=== PATIENT | male | born 1965 | race Caucasian/White ===

== ENCOUNTER 2021-09-13 23:17 | Emergency (ER) | payer MEDICAID, SELFPAY ==
[2021-09-14] VITALS: BP 160/74; PULSE 77; RESP 18; TEMP 36.7; O2SAT 97; BMI 21.7
--- NOTE | 2021-09-14 00:34 | W.ED.PSYCHS ---
HPI - Psych General: Chief Complaint: Psychiatric Symptoms Stated Complaint: MHE Time Seen by Provider: 09/14/21 00:00 History of Present Illness: HPI Narrative: Patient is a 55-year-old male who comes here via EMS for mental health evaluation. Patient was just placed in [facility] today after he had been staying in [facility]. The staff said that patient had been acting a little aggressive towards staff and other patients since he came to the prison today and they sent him here to the ED for mental health evaluation. Patient is alert oriented and normal state of mind and answers all questions accordingly. Denies any HI, SI, auditory or visual hallucinations. He denies any current physical symptoms. pt's POA is the state. EMS also stated that patient denied any SI or HI during transport. Associated symptoms: Deny auditory hallucinations, visual hallucinations, homicidal ideation or suicidal ideation Review of Systems Const: Denies: fever(s), chills or fatigue Eyes: Denies: change in vision or eye discomfort ENMT: Denies: throat pain, odynophagia, nasal discharge or nasal congestion Card: Denies: chest pain, palpitations, edema, swelling of feet/ankles, dyspnea on exertion or orthopnea Resp: Denies: dyspnea, productive cough or non-productive cough GI: Denies: abdominal pain, nausea, vomiting, diarrhea, constipation or hematochezia : Denies: flank pain, difficulty urinating, dysuria or hematuria Musc: Denies: neck pain, back pain or extremity swelling Skin/Breast: Denies: rash or new lesions Neuro: Denies: headache(s), numbness in extremities or weakness in extremities Psych: Denies: visual hallucinations, auditory hallucinations, suicidal ideation or homicidal ideation Physical Exam Const: COMMON NORMALS: no acute distress, patient oriented x3 and alert GENERAL APPEARANCE: cooperative and comfortable HENMT: COMMON NORMALS: normocephalic HEAD & SCALP: normocephalic MOUTH: Normal oral and palatal mucosa present THROAT: posterior oropharynx normal and uvula midline Neck/C-Spine: COMMON NORMALS: supple GENERAL: Yes normal visual inspection Resp: COMMON NORMALS: normal respiratory effort, No retractions, No use of accessory muscles and clear to auscultation bilaterally AUSCULTATION: clear to auscultation bilaterally Cardio: COMMON NORMALS: regular rate, regular rhythm, S1 normal heart sound present, S2 normal heart sound present, No gallops present (Cardio), No clicks present (Cardio), No murmurs present (Cardio) and Peripheral pulses 2+ throughout RATE: regular rate RHYTHM: regular rhythm HEART SOUNDS: S1 normal heart sound present and S2 normal heart sound present PERIPHERAL PULSES: Peripheral pulses 2+ throughout GI: COMMON NORMALS: Normal to inspection, nondistended, normoactive bowel sounds present, Soft to palpation, non-tender and no masses PALPATION: Yes Soft to palpation : COMMON NORMALS: Yes no CVA tenderness BLADDER/KIDNEY EXAM: Yes no CVA tenderness Back/Pelvis: COMMON NORMALS: no CVA tenderness Extremity: COMMON NORMALS: no pedal edema Neuro: COMMON NORMALS: patient oriented x3 and moves all extremities SENSORIUM/ORIENTATION: Yes alert Psych: COMMON NORMALS: speech normal APPEARANCE: Yes grossly normal ATTITUDE: Yes calm SPEECH: Yes normal speech THOUGHT CONTENT: Yes Normal thought content present, No Suicidality present, No Homicidality present and No Hallucination(s) present ATTENTION/CONCENTRATION: Yes attention grossly intact and Yes concentration grossly intact MEMORY/COGNITION: Yes memory grossly intact Skin: GENERAL SKIN EXAM: dry skin Course ED course: ED charge nurse contacted the [facility] to talk to the power of ip attorney for patient. They told nurse to have patient sent back to the prison and he does not need any evaluations or screenings and he is already been accepted at the prison. Vital Signs: Vital signs: Vital Signs Temperature 98.1 F 09/14/21 01:32 Pulse Rate 75 09/14/21 01:32 Respiratory Rate 18 09/14/21 01:32 Blood Pressure 155/76 09/14/21 01:32 Pulse Oximetry 97 09/14/21 01:32 MDM - Psych MDM Narrative: Medical decision making narrative: Patient is a 55-year-old male who comes to the ED via EMS after being sent over here for mental health evaluation by new prison facility. Patient just arrived at prison facility today and they said he is been a little aggressive towards the staff and residents there. Here in the ED patient denies any SI, HI, auditory or visual hallucinations. Patient is calm and cooperative and answering her questions accordingly. Vitals are stable. Denies any other physical complaints as well. Nurse contacted the [facility] power of ip attorney for patient and they told nurse to have patient sent back to prison and no further testing or evaluation needs to be performed here in the ED. Pt was diagnosed normal exam and discharged back to prison. Discharge Plan Discharge Patient Disposition: Home Clinical Impression: Normal exam Condition: Stable Discharge Orders: Discharge ED (Routine); Ordered 09/14/21 Ordered By: Obey Shrestha Discharge Diet: Regular Discharge Activity: Resume usual activity Activity Restrictions/Additional Instructions: Follow-up with medical provider as directed. Continue taking all previously prescribed home medications. return to the ER or your medical provider if condition worsens. Please read and understand discharge instructions. Thank you for choosing [facility] for your healthcare needs today. Please realize this is an emergency room and that we are providing you with a medical screening exam and this may not be complete and all inclusive of all the testing and or work up that you may need to determine your ailment or severity of your illness. It is very important that you follow up as instructed or that you return to the Emergency Department should you have concerns or if your condition changes or worsens in any way. Coding Level of Care Code ED Transverse Abdominal Muscle Surgeon for [facility] Sanchez Exam Comprehensive
[2021-09-14 01:32] VITALS: BP 155/76; PULSE 75; RESP 18; TEMP 36.7; O2SAT 97
--- NOTE | 2021-09-14 01:49 | PC.NURSE ---
pt refuses all lab draws and urine samples. Pt POA called and POA states send him back to detention that he was not supposed to brought here should have been taken back to [facility].
[2021-09-14 03:23] VITALS: BP 155/76; PULSE 75; RESP 18; TEMP 36.7; O2SAT 97
== END 2021-09-14 03:27 | disposition home or self-care (01) ==
PROVIDERS: Emergency Provider Physician Assistant
DX: Z03.89 Encounter for observation for other suspected diseases and conditions ruled out (principal)
CPT/HCPCS: 99283